=== PATIENT | male | born 1980 | race Caucasian/White ===

== ENCOUNTER 2016-09-13 09:11 | Inpatient (IN) | payer OTHER ==
[~2016-09-13] VITALS: Ht 187.9 cm; Wt 125.6 kg
[2016-09-13] VITALS (8 sets, daily range): BP systolic 129–171; BP diastolic 66–100
--- NOTE | ~2016-09-13 | CON ---
[place], [place] REPORT OF CONSULTATION NAME: YUN VANN UNIT #: [id number] ROOM: [place] [address] DOCTOR: DEMAR ARAGON ED.D (WES) BIRTHDATE: [birth year] DOS: HISTORY OF PRESENT ILLNESS: The patient is a 35-year-old male referred by Dr. Goodman for evaluation following a suicide attempt. At the present time, this patient is in the Intensive Care Unit at [facility]. The patient is single and presently resides with his mother in [place], [place]. He does have 1 sister. He has a bachelor's degree in business administration from [employer] and last worked at an [employer] service. He is presently on [employer] This patient's family physician is Dr. Davis. PAST MEDICAL HISTORY: His medical history is pertinent for bipolar disorder and borderline personality disorder. MEDICATIONS: Include Abilify, Wellbutrin, Pristiq, Neurontin, Rexulti, Carafate and Vyvanse. SOCIAL HISTORY: The patient denies any substance abuse issues, although he has a history of drinking significant amounts of caffeine. MENTAL STATUS: This patient was awake, alert and oriented in all three spheres. He denies any auditory or visual hallucinations or delusions. He has attempted suicide on several different occasions including in 2012 when he also overdosed on his Wellbutrin. In the past, he is followed with Dr. Hamilton in [facility] and also with Dr. Elizabeth in [place]. He does see Ellen Alvarado for counseling and also sees Dr. Renee for his medication management. He has been hospitalized 3 times for psychiatric care including being admitted in [facility], [facility] and [facility] in [place]. His father suffered from depression and committed suicide. This patient's short and long-term memory are intact. His speech was coherent. His insight, judgment and concentration are fair. ASSESSMENT: At the present time, this patient adamantly denies any suicidal ideation or plan. He states he got angry at his sister and decided to kill himself. He now states he does not want to do anything to harm himself and wants to go follow up with Ellen Alvarado for outpatient counseling and also Dr. Renee for medication management. In my opinion, he may be discharged once he is medically stable and apparently he needs to be here for at least 24 hours following an overdose of Wellbutrin. He states he is going to have his mother control his psychotropic medications. DIAGNOSES: 1. Bipolar 2. 2. Borderline personality disorder. Thank you very much for this consult. [place], [place] REPORT OF CONSULTATION NAME: YUN VANN UNIT #: [id number] ROOM: [place] [address] DOCTOR: DEMAR ARAGON ED.D (WES) BIRTHDATE: [birth year] DEMAR ARGAON ED.D CM:CONSTR:REPORT OF CONSULTATION 1341 09/14/16 0127 iron GOODMAN DO
--- NOTE | ~2016-09-13 | CON ---
[place], [place] REPORT OF CONSULTATION NAME: YUN VANN UNIT #: [id number] ROOM: [place] [address] DOCTOR: JASON CARBALLO MD BIRTHDATE: [birth year] DOS: 09/14/2016 CHIEF COMPLAINT: "I just let my father get under my skin and I did something stupid." HISTORY OF PRESENT ILLNESS: This is a 35-year-old white male known to me from my private practice in [facility]. The patient reports that he found out that his father was prior to marrying his mother. This began to work on him negatively and he ruminated over this for days and finally felt so depressed and worked up that he began taking excessive amounts of Wellbutrin in an effort to end his life. Once he realized what he had done, he had presented to the Emergency Room where he was admitted to ICU for further evaluation. Now, he has expressed remorse for his action and feels that he needs to get better. He did report that his current medication regimen, which was very effective, seems to have lost efficacy overtime. He feels that the Pristiq is still working, but the Abilify that was added in summer of last year, may have lost its efficacy and requested something else to be done. The patient has a lengthy history of bipolar disorder, borderline personality disorder, and attention deficit disorder. He follows also with Ellen Alvarado for counseling. MENTAL STATUS: He is alert and oriented. Mood does seem to be trending towards euthymia and affect is more appropriate. He expresses appropriate guilt for his actions and voices positive plans for the future. He did report seeing Ellen Alvarado in the hospital and wants to follow closely with her post-discharge. There is no maddy or hypomania. There are no auditory or visual hallucinations. Memory is intact. DIAGNOSIS: Bipolar type 1, mixed, severe. PLAN: I will go ahead and start him back on the Pristiq. Discontinue the Abilify. Start him on Vraylar 1.5 mg at bedtime. Do this for only a day and then increase to 3 mg a day. I did tell him that if he was discharged before the weekend, to come by the office for samples. JASON CARBALLO MD CM:CONSTR:REPORT OF CONSULTATION 0911 09/14/16 1534 interface
[~2016-09-13 09:11] MED LIST: ABILIFY30 MG PO; ABILIFY5 MG PO; AMBIEN10 MG PO; BACTRIM DS 8001 TAB PO; BENADRYL25 M2 PO; BENZTROPINE1 MG PO; BRIN10TA PO; BRIN20TA PO; CARAFATE1 G1 PO; CEFADROXIL500 M1 PO; CELEXA40 MG PO; CEPHALEXIN500 M1 PO; CIPRO500 MG PO; COUMADIN4 MG PO; COUMADIN5 M2 PO; COUMADIN7.5 M1 PO; Carafate1 GM/10 ML PO; DEPAKOTE ER500 MG PO; EFFEXOR XR150 MG PO; FLAGYL500 MG PO; FLOMAX0.4 MG PO; FOCALIN XR20 MG PO; FOCALIN10 MG PO; GABAPENTIN800 MG PO; HYDROCODONE BIT1 T11 PO; LAMICTAL25 MG PO; LOVENOX100 MG/1 M SC; MACROBID100 M1 PO; MEDROL DOSEPAK4 MG PO; NAPROSYN500 MG PO; NEURONTIN100 MG PO; NEURONTIN400 MG PO; NEURONTIN600 MG PO; PANTOPRAZOLE SO40 MG PO; PREDNISONE10 MG PO; PREDNISONE20 M1 PO; PRISTIQ100 MG PO; PRISTIQ50 MG PO; REXULTI1 MG PO; REXULTI2 MG PO; REXULTI3 MG PO; RISPERDAL1 MG PO; TRAZODONE HCL50 MG PO; TRAZODONE150 MG PO; VIBRAMYCIN100 MG PO; VITAMIN D50000 I3 PO; VYVANSE40 MG PO; VYVANSE70 MG PO; WELLBUTRIN100 MG PO; Wellbutrin Sr100 MG PO; XARE20MG PO
[2016-09-13] MEDS ORDERED: WELLBUTRIN SR200 MG PO (09:24)
[2016-09-13] MEDS ORDERED: ABILIFY30 MG PO (09:24)
[2016-09-13 09:48] LABS: BASO # 0.1 10*3/uL (0.0-0.1); BASO % 0.8 % (0.0-1.0); EOS # 0.1 10*3/uL (0.0-0.4); EOS % 1.4 % (1.0-4.0); HEMATOCRIT 44.4 % (42.0-52.0); HEMOGLOBIN 15.4 g/dl (14.0-18.0); IG # 0.1 10*3/uL (0.0-0.1); LYMPH # 1.8 10*3/uL (1.3-4.4); LYMPH % 21.4 % (27.0-41.0); MEAN CELL VOLUME 91.2 fl (80.0-94.0); MEAN CORPUSCULAR HGB 31.6 pg (27.0-31.0); MEAN CORPUSCULAR HGB CONC 34.7 g/dl (33.0-37.0); MONO # 0.9 10*3/uL (0.1-1.0); MONO % 10.9 % (3.0-9.0); NEUT # 5.5 10*3/uL (2.3-7.9); NEUT % 64.8 % (47.0-73.0); PLATELET COUNT AUTOMATED 313 10*3/uL (130-400); RED BLOOD COUNT 4.87 10*6/uL (4.50-5.90); RED CELL DISTRI WIDTH 13.2 % (0-14.5); WHITE BLOOD COUNT 8.5 10*3/uL (4.8-10.8)
[2016-09-13 10:05] LABS: ALBUMIN 4.5 gm/dl (3.1-4.5); ALKALINE PHOSPHATASE 77 U/L (45-117); BILIRUBIN, TOTAL 0.3 mg/dl (0.2-1.0); BUN 15 mg/dl (7-24); CARBON DIOXIDE 25 mmol/L (21-32); CHLORIDE 104 mmol/L (98-107); EST GLOM FILT AFRICAN AMERICAN > 60 ml/min; GLUCOSE 85 mg/dL (65-99); MAGNESIUM 2.3 mg/dL (1.5-2.1); POTASSIUM 4.3 mmol/L (3.5-5.1); SGOT/AST 36 IU/L (3-35); SGPT/ALT 78 U/L (12-78); SODIUM 141 mmol/L (136-145); TOTAL PROTEIN 8.2 gm/dL (6.4-8.2)
[2016-09-13 10:13] LABS: TROPONIN I < 0.015 ng/ml (<0.045)
[2016-09-13 10:32] LABS: BILIRUBIN NEGATIVE (NEGATIVE); BLOOD NEGATIVE (NEGATIVE); CLARITY CLEAR (CLEAR); COLOR YELLOW (YELLOW); GLUCOSE NEGATIVE (NEGATIVE); KETONE NEGATIVE (NEGATIVE); LEUKO ESTERASE NEGATIVE (NEGATIVE); NITRITE NEGATIVE (NEGATIVE); PH 6.5 (5.0-9.0); PROTEIN NEGATIVE (NEGATIVE); SPECIFIC GRAVITY <= 1.005 (1.005-1.030); UROBILINOGEN 0.2 E.U./dl (0.2-1.0)
[2016-09-13 10:42] LABS: URINE AMPHETAMINES < 1000 (1000ng/ml); URINE BARBITURATES < 200 (200ng/ml); URINE COCAINE < 300 (300ng/ml)
[2016-09-13 10:46] LABS: URINE REFLEX COMMENT NO (NO); WBC 0-2 wbc/hpf (0-5)
[2016-09-13 12:47] LABS: TROPONIN I < 0.015 ng/ml (<0.045)
[2016-09-13 12:48] LABS: CKMB 5.6 ng/ml (0.5-3.6)
[2016-09-13 12:53] LABS: CPK 1121 U/L (39-308)
[2016-09-13 18:00] LABS: CKMB 3.9 ng/ml (0.5-3.6); CPK 807 U/L (39-308); TROPONIN I < 0.015 ng/ml (<0.045)
[2016-09-14] VITALS: BP 128/73
[2016-09-14 00:52] LABS: CKMB 3.2 ng/ml (0.5-3.6); CPK 692 U/L (39-308); TROPONIN I < 0.015 ng/ml (<0.045)
[2016-09-14 03:09] VITALS: BP 163/86
[2016-09-14 04:00] VITALS: BP 126/67
[2016-09-14 06:31] LABS: BASO % 0.4 % (0.0-1.0); EOS # 0.1 10*3/uL (0.0-0.4); EOS % 1.5 % (1.0-4.0); HEMATOCRIT 40.3 % (42.0-52.0); IG # 0.1 10*3/uL (0.0-0.1); LYMPH # 1.6 10*3/uL (1.3-4.4); LYMPH % 22.6 % (27.0-41.0); MEAN CORPUSCULAR HGB 32.1 pg (27.0-31.0); MEAN CORPUSCULAR HGB CONC 33.3 g/dl (33.0-37.0); MEAN PLATELET VOLUME 9.2 fl (9.6-12.3); MONO # 0.8 10*3/uL (0.1-1.0); MONO % 10.8 % (3.0-9.0); NEUT # 4.6 10*3/uL (2.3-7.9); PLATELET COUNT AUTOMATED 232 10*3/uL (130-400); RED BLOOD COUNT 4.18 10*6/uL (4.50-5.90); RED CELL DISTRI WIDTH 13.8 % (0-14.5); WHITE BLOOD COUNT 7.3 10*3/uL (4.8-10.8)
[2016-09-14 06:34] LABS: HEMOGLOBIN 13.4 g/dl (14.0-18.0); MEAN CELL VOLUME 96.4 fl (80.0-94.0)
[2016-09-14 06:49] LABS: CHLORIDE 114 mmol/L (98-107); POTASSIUM 4.1 mmol/L (3.5-5.1); SODIUM 146 mmol/L (136-145)
[2016-09-14 07:01] LABS: ALBUMIN 3.3 gm/dl (3.1-4.5); ALKALINE PHOSPHATASE 62 U/L (45-117); BILIRUBIN, TOTAL 0.3 mg/dl (0.2-1.0); BUN 15 mg/dl (7-24); CARBON DIOXIDE 22 mmol/L (21-32); CHOLESTEROL 142 mg/dL (<200); EST GLOM FILT AFRICAN AMERICAN > 60 ml/min; GLUCOSE 88 mg/dL (65-99); HDL CHOLESTEROL 46 mg/dl (40-60); LDL CHOLESTEROL 80 mg/dL (9-159); MAGNESIUM 2.4 mg/dL (1.5-2.1); PHOSPHOROUS 3.1 mg/dL (2.5-4.9); SGOT/AST 28 IU/L (3-35); SGPT/ALT 53 U/L (12-78); TOTAL PROTEIN 6.3 gm/dL (6.4-8.2); TRIGLYCERIDES 79 mg/dl (<150); VLDL CHOLESTEROL 16 mg/dL (6-40)
[2016-09-14 07:05] LABS: FOLIC ACID 20.49 ng/mL (>5.38); VITAMIN D, 25-HYDROXY 24.6 ng/mL (30-100)
[2016-09-14 08:00] VITALS: BP 118/60
[2016-09-14] MEDS ORDERED: D-1000 185 MG-11 TAB PO (11:32)
== END 2016-09-14 12:00 | disposition home or self-care (01) | DRG 917 ==
LOC: ED 09:11 → ICCU 10:29 → EDHOLD 10:29 → ICCU 10:50
PROVIDERS: Family Medicine Adult Medicine; Hospitalist
DX: T43.292A Poisoning by other antidepressants, intentional self-harm, initial encounter (principal); N17.0 Acute kidney failure with tubular necrosis; F31.63 Bipolar disorder, current episode mixed, severe, without psychotic features; F90.9 Attention-deficit hyperactivity disorder, unspecified type; F25.9 Schizoaffective disorder, unspecified; E05.90 Thyrotoxicosis, unspecified without thyrotoxic crisis or storm; R56.9 Unspecified convulsions; K21.9 Gastro-esophageal reflux disease without esophagitis; F17.210 Nicotine dependence, cigarettes, uncomplicated; D64.9 Anemia, unspecified; E66.9 Obesity, unspecified; R00.0 Tachycardia, unspecified; F60.3 Borderline personality disorder; Z80.3 Family history of malignant neoplasm of breast; Z79.899 Other long term (current) drug therapy; Y92.89 Other specified places as the place of occurrence of the external cause; Z68.33 Body mass index [BMI] 33.0-33.9, adult

== ENCOUNTER → 2016-10-04 | Outpatient (CLI) | payer OTHER ==
[~2016-10-04] MED LIST changes: +D-1000 185 MG-11 TAB PO; +WELLBUTRIN SR200 MG PO
[2016-10-04 11:25] LABS: BASO % 0.4 % (0.0-1.0); EOS # 0.1 10*3/uL (0.0-0.4); EOS % 1.1 % (1.0-4.0); HEMATOCRIT 41.5 % (42.0-52.0); HEMOGLOBIN 14.1 g/dl (14.0-18.0); LYMPH # 1.5 10*3/uL (1.3-4.4); LYMPH % 13.7 % (27.0-41.0); MEAN CELL VOLUME 94.7 fl (80.0-94.0); MEAN CORPUSCULAR HGB 32.2 pg (27.0-31.0); MEAN PLATELET VOLUME 8.8 fl (9.6-12.3); MONO # 0.6 10*3/uL (0.1-1.0); MONO % 5.3 % (3.0-9.0); NEUT # 8.6 10*3/uL (2.3-7.9); NEUT % 79.1 % (47.0-73.0); PLATELET COUNT AUTOMATED 258 10*3/uL (130-400); RED BLOOD COUNT 4.38 10*6/uL (4.50-5.90); RED CELL DISTRI WIDTH 13.9 % (0-14.5); WHITE BLOOD COUNT 10.9 10*3/uL (4.8-10.8)
[2016-10-04 11:48] LABS: ALBUMIN 3.9 gm/dl (3.1-4.5); ALKALINE PHOSPHATASE 73 U/L (45-117); BILIRUBIN, TOTAL 0.3 mg/dl (0.2-1.0); BUN 9 mg/dl (7-24); CARBON DIOXIDE 29 mmol/L (21-32); CHLORIDE 107 mmol/L (98-107); EST GLOM FILT AFRICAN AMERICAN > 60 ml/min; GLUCOSE 99 mg/dL (65-99); POTASSIUM 4.4 mmol/L (3.5-5.1); SGOT/AST 33 IU/L (3-35); SGPT/ALT 71 U/L (12-78); SODIUM 142 mmol/L (136-145); TOTAL PROTEIN 7.3 gm/dL (6.4-8.2)
[2016-10-06 10:06] LABS: NEURONTIN (GABAPENTIN) 1.3 ug/mL (4.0-16.0)
== END | disposition home or self-care (01) ==
LOC: LAB 11:03
PROVIDERS: Nurse Practitioner Family
DX: F31.0 Bipolar disorder, current episode hypomanic (principal)

== ENCOUNTER 2016-11-22 20:59 | Emergency (ER) | payer OTHER ==
[~2016-11-22] VITALS: Ht 187.9 cm; Wt 121.6 kg
[2016-11-22] MEDS ORDERED: VRAYLAR3 MG PO (21:02)
[2016-11-22] MEDS ORDERED: BUSPAR15 MG PO (21:02)
[2016-11-22] MEDS ORDERED: STRATTERA100 MG PO (21:02)
[2016-11-22] MEDS ORDERED: ZANAFLEX CAPSULE4 MG PO (21:03)
[2016-11-22] MEDS ORDERED: CYCLOBENZAPRINE5 M3 PO (23:32)
[2016-11-22] MEDS ORDERED: MEDROL DOSEPAK4 MG PO (23:32)
[2016-11-22] MEDS ORDERED: HYDROCODONE BIT1 T11 PO (23:32)
== END 2016-11-23 | disposition home or self-care (01) ==
LOC: ED 20:59
DX: M54.5 Low back pain (principal); F17.200 Nicotine dependence, unspecified, uncomplicated; Z98.84 Bariatric surgery status; Z98.890 Other specified postprocedural states; Z79.899 Other long term (current) drug therapy; X58.XXXA Exposure to other specified factors, initial encounter; Y93.89 Activity, other specified; Y92.89 Other specified places as the place of occurrence of the external cause; Y99.9 Unspecified external cause status

== ENCOUNTER → 2017-01-18 | Outpatient (CLI) | payer OTHER ==
[~2017-01-18] MED LIST changes: +BUSPAR15 MG PO; +CYCLOBENZAPRINE5 M3 PO; +STRATTERA100 MG PO; +VRAYLAR3 MG PO; +ZANAFLEX CAPSULE4 MG PO
[2017-01-18 10:03] LABS: BASO # 0.1 10*3/uL (0.0-0.1); BASO % 0.5 % (0.0-1.0); EOS # 0.1 10*3/uL (0.0-0.4); EOS % 0.9 % (1.0-4.0); HEMATOCRIT 41.7 % (42.0-52.0); HEMOGLOBIN 14.2 g/dl (14.0-18.0); LYMPH # 1.4 10*3/uL (1.3-4.4); LYMPH % 15.5 % (27.0-41.0); MEAN CELL VOLUME 94.8 fl (80.0-94.0); MEAN CORPUSCULAR HGB 32.3 pg (27.0-31.0); MEAN CORPUSCULAR HGB CONC 34.1 g/dl (33.0-37.0); MEAN PLATELET VOLUME 9.2 fl (9.6-12.3); MONO # 0.6 10*3/uL (0.1-1.0); NEUT % 76.7 % (47.0-73.0); PLATELET COUNT AUTOMATED 251 10*3/uL (130-400); RED CELL DISTRI WIDTH 12.2 % (0-14.5); WHITE BLOOD COUNT 9.2 10*3/uL (4.8-10.8)
[2017-01-18 10:29] LABS: ALBUMIN 3.8 gm/dl (3.1-4.5); BUN 9 mg/dl (7-24); CARBON DIOXIDE 29 mmol/L (21-32); CHLORIDE 108 mmol/L (98-107); GLUCOSE 88 mg/dL (65-99); POTASSIUM 4.4 mmol/L (3.5-5.1); SODIUM 139 mmol/L (136-145)
[2017-01-18 10:40] LABS: ALKALINE PHOSPHATASE 71 U/L (45-117); BILIRUBIN, TOTAL 0.2 mg/dl (0.2-1.0); EST GLOM FILT AFRICAN AMERICAN > 60 ml/min; SGOT/AST 25 IU/L (3-35); SGPT/ALT 63 U/L (12-78); TOTAL PROTEIN 7.1 gm/dL (6.4-8.2)
[2017-01-18 10:56] LABS: VITAMIN D, 25-HYDROXY 25.9 ng/mL (30-100)
[2017-01-18 10:57] LABS: FOLIC ACID 22.66 ng/mL (>5.38)
== END | disposition home or self-care (01) ==
LOC: LAB 09:36
PROVIDERS: Physician Assistant
DX: Z51.81 Encounter for therapeutic drug level monitoring (principal); E55.9 Vitamin D deficiency, unspecified; Z79.899 Other long term (current) drug therapy; F15.90 Other stimulant use, unspecified, uncomplicated

== ENCOUNTER 2017-02-06 05:03 | Emergency (ER) | payer OTHER ==
[~2017-02-06] VITALS: Ht 187.9 cm; Wt 122.5 kg
[2017-02-06 05:41] LABS: BASO % 0.5 % (0.0-1.0); EOS # 0.2 10*3/uL (0.0-0.4); EOS % 1.9 % (1.0-4.0); HEMATOCRIT 38.9 % (42.0-52.0); HEMOGLOBIN 13.6 g/dl (14.0-18.0); LYMPH # 2.6 10*3/uL (1.3-4.4); LYMPH % 32.1 % (27.0-41.0); MEAN CELL VOLUME 93.3 fl (80.0-94.0); MEAN CORPUSCULAR HGB 32.6 pg (27.0-31.0); MEAN PLATELET VOLUME 9.2 fl (9.6-12.3); MONO # 0.6 10*3/uL (0.1-1.0); MONO % 7.7 % (3.0-9.0); NEUT # 4.6 10*3/uL (2.3-7.9); NEUT % 57.2 % (47.0-73.0); PLATELET COUNT AUTOMATED 226 10*3/uL (130-400); RED BLOOD COUNT 4.17 10*6/uL (4.50-5.90); RED CELL DISTRI WIDTH 12.3 % (0-14.5)
[2017-02-06 05:58] LABS: ALKALINE PHOSPHATASE 78 U/L (45-117); BUN 9 mg/dl (7-24); CHLORIDE 99 mmol/L (98-107); POTASSIUM 3.6 mmol/L (3.5-5.1); SGOT/AST 53 IU/L (3-35); SGPT/ALT 60 U/L (12-78); SODIUM 136 mmol/L (136-145); TOTAL PROTEIN 7.3 gm/dL (6.4-8.2)
[2017-02-06 05:59] LABS: BILIRUBIN NEGATIVE (NEGATIVE); BLOOD NEGATIVE (NEGATIVE); CLARITY CLEAR (CLEAR); COLOR YELLOW (YELLOW); GLUCOSE NEGATIVE (NEGATIVE); KETONE NEGATIVE (NEGATIVE); LEUKO ESTERASE NEGATIVE (NEGATIVE); NITRITE NEGATIVE (NEGATIVE); PH 6.5 (5.0-9.0); SPECIFIC GRAVITY <= 1.005 (1.005-1.030); UROBILINOGEN 0.2 E.U./dl (0.2-1.0)
[2017-02-06 05:59] LABS: ACETAMINOPHEN (TYLENOL) < 2.0 ug/ml (10-30); TROPONIN I < 0.015 ng/ml (<0.045)
[2017-02-06 06:04] LABS: THYROID STIM HORMONE (HS) 0.752 uIU/ml (0.358-4.75)
[2017-02-06 06:09] LABS: URINE AMPHETAMINES < 1000 (1000ng/ml); URINE BARBITURATES < 200 (200ng/ml); URINE BENZODIAZEPINES < 200 (200ng/ml); URINE CANNABINOIDS (THC) < 50 (50ng/ml); URINE COCAINE < 300 (300ng/ml); URINE METHADONE < 300 (300ng/ml); URINE OPIATES < 300 (300ng/ml)
[2017-02-06 06:16] LABS: ETHYL ALCOHOL < 3.0 mg/dl (<3)
[2017-02-06 06:17] LABS: URINE PHENCYCLIDINE < 25 (25ng/ml)
[2017-02-06 06:26] LABS: RBC 0-2 rbc/hpf (0-2); WBC 0-2 wbc/hpf (0-5)
== END 2017-02-06 07:13 | disposition home or self-care (01) ==
LOC: ED 05:03
PROVIDERS: Emergency Medicine Emergency Medical Services
DX: R94.6 Abnormal results of thyroid function studies (principal); K21.9 Gastro-esophageal reflux disease without esophagitis; Z87.891 Personal history of nicotine dependence; Z79.899 Other long term (current) drug therapy

== ENCOUNTER → 2017-03-28 | Outpatient (CLI) | payer OTHER | END | disposition home or self-care (01) | LOC: US 12:52 | DX: E05.90 Thyrotoxicosis, unspecified without thyrotoxic crisis or storm (principal) ==

== ENCOUNTER → 2017-04-13 | Outpatient (CLI) | payer OTHER ==
[2017-04-13 09:33] LABS: BASO % 0.5 % (0.0-1.0); EOS # 0.1 10*3/uL (0.0-0.4); EOS % 1.2 % (1.0-4.0); HEMATOCRIT 44.3 % (42.0-52.0); HEMOGLOBIN 15.7 g/dl (14.0-18.0); LYMPH # 1.9 10*3/uL (1.3-4.4); LYMPH % 22.8 % (27.0-41.0); MEAN CELL VOLUME 91.9 fl (80.0-94.0); MEAN CORPUSCULAR HGB 32.6 pg (27.0-31.0); MEAN CORPUSCULAR HGB CONC 35.4 g/dl (33.0-37.0); MEAN PLATELET VOLUME 9.3 fl (9.6-12.3); MONO # 0.7 10*3/uL (0.1-1.0); NEUT # 5.7 10*3/uL (2.3-7.9); PLATELET COUNT AUTOMATED 256 10*3/uL (130-400); RED BLOOD COUNT 4.82 10*6/uL (4.50-5.90); RED CELL DISTRI WIDTH 12.4 % (0-14.5); WHITE BLOOD COUNT 8.4 10*3/uL (4.8-10.8)
[2017-04-13 10:35] LABS: CHLORIDE 102 mmol/L (98-107); SODIUM 138 mmol/L (136-145)
[2017-04-13 11:30] LABS: ALBUMIN 4.1 gm/dl (3.1-4.5); ALKALINE PHOSPHATASE 79 U/L (45-117); BUN 12 mg/dl (7-24); CREATININE 0.86 mg/dL (0.70-1.30); FREE T4 0.94 ng/dl (0.76-1.46); SGOT/AST 23 IU/L (3-35); SGPT/ALT 71 U/L (12-78)
[2017-04-14 16:09] LABS: ANTICARDIOLIPIN AB, IGG, QN <9 GPL U/mL (0-14); ANTICARDIOLIPIN AB, IGM, QN 13 MPL U/mL (0-12); CARDIOLIPIN AB IGA 161836 <9 APL U/mL (0-11)
[2017-04-15 11:03] LABS: PTT-LA 40.4 sec (0.0-51.9)
[2017-04-16 08:04] LABS: LUPUS DRVVT 98.2 sec (0.0-47.0)
[2017-04-16 09:06] LABS: LUPUS REFLEX INTERPRETATION Comment: (.)
[2017-04-16 14:05] LABS: BETA-2 GLYCOPROTEIN I AB,IGG <9 (0-20); BETA-2 GLYCOPROTEIN I AB,IGM <9 (0-32)
== END | disposition home or self-care (01) ==
LOC: LAB 09:10
PROVIDERS: Internal Medicine Hematology & Oncology
DX: F32.9 Major depressive disorder, single episode, unspecified (principal); I26.99 Other pulmonary embolism without acute cor pulmonale

== ENCOUNTER 2017-05-28 22:50 | Emergency (ER) | payer OTHER ==
[~2017-05-28] VITALS: Ht 187.9 cm; Wt 122.5 kg
[2017-05-28 23:20] LABS: BASO # 0.1 10*3/uL (0.0-0.1); BASO % 0.8 % (0.0-1.0); EOS # 0.2 10*3/uL (0.0-0.4); EOS % 1.9 % (1.0-4.0); HEMATOCRIT 41.3 % (42.0-52.0); HEMOGLOBIN 14.3 g/dl (14.0-18.0); LYMPH # 2.5 10*3/uL (1.3-4.4); LYMPH % 31.6 % (27.0-41.0); MEAN CORPUSCULAR HGB 32.2 pg (27.0-31.0); MEAN CORPUSCULAR HGB CONC 34.6 g/dl (33.0-37.0); MEAN PLATELET VOLUME 9.1 fl (9.6-12.3); MONO # 0.5 10*3/uL (0.1-1.0); MONO % 6.6 % (3.0-9.0); NEUT # 4.6 10*3/uL (2.3-7.9); NEUT % 58.7 % (47.0-73.0); PLATELET COUNT AUTOMATED 258 10*3/uL (130-400); RED BLOOD COUNT 4.44 10*6/uL (4.50-5.90); RED CELL DISTRI WIDTH 12.4 % (0-14.5); WHITE BLOOD COUNT 7.9 10*3/uL (4.8-10.8)
[2017-05-28 23:29] LABS: BILIRUBIN NEGATIVE (NEGATIVE); BLOOD NEGATIVE (NEGATIVE); CLARITY CLEAR (CLEAR); COLOR YELLOW (YELLOW); GLUCOSE NEGATIVE (NEGATIVE); KETONE NEGATIVE (NEGATIVE); LEUKO ESTERASE NEGATIVE (NEGATIVE); NITRITE NEGATIVE (NEGATIVE); SPECIFIC GRAVITY <= 1.005 (1.005-1.030); UROBILINOGEN 0.2 E.U./dl (0.2-1.0)
[2017-05-28 23:35] LABS: ALBUMIN 4.1 gm/dl (3.1-4.5); ALKALINE PHOSPHATASE 86 U/L (45-117); BUN 10 mg/dl (7-24); CHLORIDE 103 mmol/L (98-107); CREATININE 1.07 mg/dL (0.70-1.30); POTASSIUM 3.9 mmol/L (3.5-5.1); SGOT/AST 50 IU/L (3-35); SGPT/ALT 76 U/L (12-78); SODIUM 141 mmol/L (136-145); TOTAL PROTEIN 7.7 gm/dL (6.4-8.2)
[2017-05-28 23:36] LABS: BACTERIA TRACE; EPITHELIAL CELLS 0-2; RBC 0-2 rbc/hpf (0-2); WBC 0-2 wbc/hpf (0-5)
[2017-05-28 23:37] LABS: ACETAMINOPHEN (TYLENOL) < 2.0 ug/ml (10-30); ETHYL ALCOHOL < 3.0 mg/dl (<3)
[2017-05-28 23:38] LABS: URINE AMPHETAMINES < 1000 (1000ng/ml); URINE BARBITURATES < 200 (200ng/ml); URINE BENZODIAZEPINES < 200 (200ng/ml); URINE CANNABINOIDS (THC) < 50 (50ng/ml); URINE COCAINE < 300 (300ng/ml); URINE METHADONE < 300 (300ng/ml); URINE OPIATES < 300 (300ng/ml); URINE PHENCYCLIDINE < 25 (25ng/ml)
== END 2017-05-30 22:21 | disposition short-term general hospital (02) ==
LOC: ED 22:50
PROVIDERS: Emergency Medicine Emergency Medical Services
DX: F32.9 Major depressive disorder, single episode, unspecified (principal); R45.851 Suicidal ideations; F90.9 Attention-deficit hyperactivity disorder, unspecified type; F41.9 Anxiety disorder, unspecified; K21.9 Gastro-esophageal reflux disease without esophagitis; E05.90 Thyrotoxicosis, unspecified without thyrotoxic crisis or storm; F20.9 Schizophrenia, unspecified; N17.9 Acute kidney failure, unspecified; F17.210 Nicotine dependence, cigarettes, uncomplicated; Z68.39 Body mass index [BMI] 39.0-39.9, adult; Z79.899 Other long term (current) drug therapy

== ENCOUNTER 2017-06-23 07:44 | Emergency (ER) | payer OTHER ==
[~2017-06-23] VITALS: Ht 187.9 cm; Wt 121.6 kg
[2017-06-23 08:15] LABS: BASO # 0.1 10*3/uL (0.0-0.1); BASO % 0.8 % (0.0-1.0); EOS # 0.2 10*3/uL (0.0-0.4); EOS % 2.1 % (1.0-4.0); HEMATOCRIT 40.7 % (42.0-52.0); HEMOGLOBIN 14.1 g/dl (14.0-18.0); LYMPH # 2.1 10*3/uL (1.3-4.4); MEAN CELL VOLUME 94.2 fl (80.0-94.0); MEAN CORPUSCULAR HGB 32.6 pg (27.0-31.0); MEAN CORPUSCULAR HGB CONC 34.6 g/dl (33.0-37.0); MEAN PLATELET VOLUME 9.1 fl (9.6-12.3); MONO # 0.7 10*3/uL (0.1-1.0); MONO % 8.7 % (3.0-9.0); NEUT # 4.8 10*3/uL (2.3-7.9); NEUT % 60.9 % (47.0-73.0); PLATELET COUNT AUTOMATED 262 10*3/uL (130-400); RED BLOOD COUNT 4.32 10*6/uL (4.50-5.90); RED CELL DISTRI WIDTH 12.3 % (0-14.5); WHITE BLOOD COUNT 7.8 10*3/uL (4.8-10.8)
[2017-06-23] MEDS ORDERED: SYNTHROID25 MCG PO (08:20)
[2017-06-23 08:30] LABS: ALBUMIN 3.8 gm/dl (3.1-4.5); ALKALINE PHOSPHATASE 83 U/L (45-117); BUN 8 mg/dl (7-24); CHLORIDE 104 mmol/L (98-107); CREATININE 0.96 mg/dL (0.70-1.30); POTASSIUM 4.1 mmol/L (3.5-5.1); SGOT/AST 32 IU/L (3-35); SGPT/ALT 66 U/L (12-78); SODIUM 139 mmol/L (136-145); TOTAL PROTEIN 7.3 gm/dL (6.4-8.2)
[2017-06-23 08:31] LABS: ETHYL ALCOHOL < 3.0 mg/dl (<3)
[2017-06-23 08:32] LABS: BILIRUBIN NEGATIVE (NEGATIVE); BLOOD NEGATIVE (NEGATIVE); CLARITY CLEAR (CLEAR); COLOR YELLOW (YELLOW); GLUCOSE NEGATIVE (NEGATIVE); KETONE NEGATIVE (NEGATIVE); LEUKO ESTERASE NEGATIVE (NEGATIVE); NITRITE NEGATIVE (NEGATIVE); PH 6.5 (5.0-9.0); SPECIFIC GRAVITY <= 1.005 (1.005-1.030); UROBILINOGEN 0.2 E.U./dl (0.2-1.0)
[2017-06-23 08:38] LABS: THYROID STIM HORMONE (HS) 0.669 uIU/ml (0.358-4.75)
[2017-06-23 08:40] LABS: URINE AMPHETAMINES < 1000 (1000ng/ml); URINE BARBITURATES < 200 (200ng/ml); URINE BENZODIAZEPINES < 200 (200ng/ml); URINE CANNABINOIDS (THC) < 50 (50ng/ml); URINE COCAINE < 300 (300ng/ml); URINE METHADONE < 300 (300ng/ml); URINE OPIATES < 300 (300ng/ml); URINE PHENCYCLIDINE < 25 (25ng/ml)
== END 2017-06-23 08:39 | disposition home or self-care (01) ==
LOC: ED 07:44
PROVIDERS: Emergency Medicine
DX: F25.9 Schizoaffective disorder, unspecified (principal); F17.200 Nicotine dependence, unspecified, uncomplicated; F90.9 Attention-deficit hyperactivity disorder, unspecified type; F32.9 Major depressive disorder, single episode, unspecified; K21.9 Gastro-esophageal reflux disease without esophagitis; E05.90 Thyrotoxicosis, unspecified without thyrotoxic crisis or storm; N17.9 Acute kidney failure, unspecified; Z68.39 Body mass index [BMI] 39.0-39.9, adult

== ENCOUNTER → 2017-09-25 | Outpatient (CLI) | payer OTHER ==
[~2017-09-25] MED LIST changes: +SYNTHROID25 MCG PO
[2017-09-25 13:16] LABS: FREE T4 0.83 ng/dl (0.76-1.46)
[2017-09-25 13:21] LABS: THYROID STIM HORMONE (HS) 0.138 uIU/ml (0.358-4.75)
== END | disposition home or self-care (01) ==
LOC: LAB 12:06
PROVIDERS: Internal Medicine
DX: E03.9 Hypothyroidism, unspecified (principal); E55.9 Vitamin D deficiency, unspecified

== ENCOUNTER 2017-10-20 08:00 | Emergency (ER) | payer OTHER ==
[~2017-10-20] VITALS: Ht 182.8 cm; Wt 123.8 kg
[2017-10-20] MEDS ORDERED: NAPROSYN500 MG PO (09:06)
[2017-10-20] MEDS ORDERED: PREDNISONE50 MG PO (09:06)
== END 2017-10-20 09:35 | disposition left against medical advice (07) ==
LOC: ED 08:00
DX: M25.511 Pain in right shoulder (principal); M54.2 Cervicalgia; K21.9 Gastro-esophageal reflux disease without esophagitis; E66.9 Obesity, unspecified; F17.200 Nicotine dependence, unspecified, uncomplicated; E05.90 Thyrotoxicosis, unspecified without thyrotoxic crisis or storm; Z68.39 Body mass index [BMI] 39.0-39.9, adult; Z98.890 Other specified postprocedural states; Z79.899 Other long term (current) drug therapy; X50.0XXA Overexertion from strenuous movement or load, initial encounter; Y93.89 Activity, other specified; Y92.89 Other specified places as the place of occurrence of the external cause; Y99.9 Unspecified external cause status

== ENCOUNTER 2017-12-30 18:04 | Emergency (ER) | payer OTHER ==
[~2017-12-30] VITALS: Ht 187.9 cm; Wt 123.4 kg
--- NOTE | ~2017-12-30 | EKG ---
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
[~2017-12-30 18:04] MED LIST changes: +PREDNISONE50 MG PO
[2017-12-30] MEDS ORDERED: INVEGA6 MG PO (18:19)
[2017-12-30] MEDS ORDERED: DOXEPIN HCL25 MG PO (18:19)
[2017-12-30] MEDS ORDERED: VYVANSE60 MG PO (18:20)
[2017-12-30] MEDS ORDERED: VITAMIN D5000 UNI1 PO (18:20)
[2017-12-30 18:50] LABS: BASO % 0.4 % (0.0-1.0); EOS # 0.1 10*3/uL (0.0-0.4); EOS % 0.9 % (1.0-4.0); HEMATOCRIT 41.9 % (42.0-52.0); HEMOGLOBIN 14.9 g/dl (14.0-18.0); LYMPH # 1.8 10*3/uL (1.3-4.4); LYMPH % 19.1 % (27.0-41.0); MEAN CELL VOLUME 90.7 fl (80.0-94.0); MEAN CORPUSCULAR HGB 32.3 pg (27.0-31.0); MEAN CORPUSCULAR HGB CONC 35.6 g/dl (33.0-37.0); MONO # 0.7 10*3/uL (0.1-1.0); NEUT # 6.9 10*3/uL (2.3-7.9); NEUT % 72.4 % (47.0-73.0); PLATELET COUNT AUTOMATED 245 10*3/uL (130-400); RED BLOOD COUNT 4.62 10*6/uL (4.50-5.90); RED CELL DISTRI WIDTH 12.4 % (0-14.5); WHITE BLOOD COUNT 9.5 10*3/uL (4.8-10.8)
[2017-12-30 19:19] LABS: ALBUMIN 4.6 gm/dl (3.1-4.5); ALKALINE PHOSPHATASE 66 U/L (45-117); BUN 12 mg/dl (7-24); CHLORIDE 102 mmol/L (98-107); CREATININE 1.12 mg/dL (0.70-1.30); POTASSIUM 2.9 mmol/L (3.5-5.1); SGOT/AST 62 IU/L (3-35); SGPT/ALT 81 U/L (12-78); SODIUM 140 mmol/L (136-145); TOTAL PROTEIN 7.6 gm/dL (6.4-8.2)
[2017-12-30 19:20] LABS: TROPONIN I < 0.015 ng/ml (<0.045)
[2017-12-30] MEDS ORDERED: POTASSIUM CHLO20 ME3 PO (19:47)
[2017-12-30 19:49] LABS: BILIRUBIN NEGATIVE (NEGATIVE); BLOOD NEGATIVE (NEGATIVE); CLARITY CLEAR (CLEAR); COLOR YELLOW (YELLOW); GLUCOSE NEGATIVE (NEGATIVE); KETONE TRACE (NEGATIVE); LEUKO ESTERASE NEGATIVE (NEGATIVE); NITRITE NEGATIVE (NEGATIVE); PH 8.5 (5.0-9.0); SPECIFIC GRAVITY <= 1.005 (1.005-1.030); UROBILINOGEN 0.2 E.U./dl (0.2-1.0)
[2017-12-30 19:57] LABS: URINE AMPHETAMINES < 1000 (1000ng/ml); URINE BARBITURATES < 200 (200ng/ml); URINE BENZODIAZEPINES < 200 (200ng/ml); URINE CANNABINOIDS (THC) < 50 (50ng/ml); URINE COCAINE < 300 (300ng/ml); URINE METHADONE < 300 (300ng/ml); URINE OPIATES < 300 (300ng/ml)
[2017-12-30 20:11] LABS: URINE PHENCYCLIDINE < 25 (25ng/ml)
[2017-12-30 20:25] LABS: BACTERIA TRACE; WBC 0-2 wbc/hpf (0-5)
== END 2017-12-30 21:59 | disposition home or self-care (01) ==
LOC: ED 18:04
PROVIDERS: Nurse Practitioner
DX: R00.2 Palpitations (principal); T43.615A Adverse effect of caffeine, initial encounter; E87.6 Hypokalemia; L21.0 Seborrhea capitis; R94.5 Abnormal results of liver function studies; F17.200 Nicotine dependence, unspecified, uncomplicated; Z79.899 Other long term (current) drug therapy; Y92.89 Other specified places as the place of occurrence of the external cause

== ENCOUNTER → 2018-01-09 | Outpatient (CLI) | payer OTHER ==
[~2018-01-09] MED LIST changes: +DOXEPIN HCL25 MG PO; +INVEGA6 MG PO; +POTASSIUM CHLO20 ME3 PO; +VITAMIN D5000 UNI1 PO; +VYVANSE60 MG PO
[2018-01-09 10:58] LABS: HEMATOCRIT 38.6 % (42.0-52.0); MEAN CELL VOLUME 95.3 fl (80.0-94.0); MEAN CORPUSCULAR HGB 32.1 pg (27.0-31.0); MEAN CORPUSCULAR HGB CONC 33.7 g/dl (33.0-37.0); MEAN PLATELET VOLUME 9.4 fl (9.6-12.3); RED BLOOD COUNT 4.05 10*6/uL (4.50-5.90); RED CELL DISTRI WIDTH 12.6 % (0-14.5)
[2018-01-09 11:09] LABS: ALBUMIN 3.7 gm/dl (3.1-4.5); ALKALINE PHOSPHATASE 64 U/L (45-117); BUN 6 mg/dl (7-24); CHLORIDE 107 mmol/L (98-107); CHOLESTEROL 135 mg/dL (<200); FREE T4 0.74 ng/dl (0.76-1.46); GAMMA GLUTAMYL TRANSPEPTIDASE 83 U/L (15-85); HDL CHOLESTEROL 46 mg/dl (40-60); LDL CHOLESTEROL 73 mg/dL (9-159); POTASSIUM 3.7 mmol/L (3.5-5.1); SGOT/AST 25 IU/L (3-35); SGPT/ALT 55 U/L (12-78); SODIUM 144 mmol/L (136-145); TOTAL PROTEIN 6.7 gm/dL (6.4-8.2); TRIGLYCERIDES 79 mg/dl (<150); VLDL CHOLESTEROL 16 mg/dL (6-40)
[2018-01-09 11:13] LABS: THYROID STIM HORMONE (HS) 0.173 uIU/ml (0.358-4.75)
== END | disposition home or self-care (01) ==
LOC: LAB 10:19
PROVIDERS: Family Medicine
DX: E03.9 Hypothyroidism, unspecified (principal); E87.6 Hypokalemia; F10.21 Alcohol dependence, in remission

== ENCOUNTER 2018-01-13 15:32 | Emergency (ER) | payer OTHER ==
[~2018-01-13] VITALS: Ht 187.9 cm; Wt 124.7 kg
--- NOTE | ~2018-01-13 | EKG ---
[place], [place] ELECTROCARDIOGRAM REPORT NAME: YUN VANN UNIT #: [id number] ROOM: DOCTOR: ANGELA DRAFT REPORT BIRTHDATE: [birth year] [facility] Test Date: 2018-01-13 Test Time: 16:00:29 Pat Name: YUN VANN Department: Room: Gender: Blog Writer: : 1980 Requested By: ROSA ORTIZ Order Number: [id number] Reading MD: Measurements Intervals [place] Rate: 102 P: 60 W[place]: 139 QRS: -56 QRSD: 113 T: 44 QT: 357 QTc: 466 Interpretive Statements Sinus tachycardia Borderline IVCD with LAD Compared to ECG 12/30/2017 18:22:39 Sinus rhythm no longer present Atrial abnormality no longer present Left anterior fascicular block no longer present Right bundle-branch block no longer present CM:EKGRPT:ELECTROCARDIOGRAM REPORT 1600 1301 ROSA MILLER DRAFT REPORT ROSA ORTIZ MD
[2018-01-13 16:09] LABS: BASO # 0.1 10*3/uL (0.0-0.1); BASO % 0.7 % (0.0-1.0); EOS # 0.2 10*3/uL (0.0-0.4); EOS % 2.1 % (1.0-4.0); HEMOGLOBIN 16.2 g/dl (14.0-18.0); LYMPH % 20.9 % (27.0-41.0); MEAN CELL VOLUME 93.4 fl (80.0-94.0); MEAN CORPUSCULAR HGB 32.2 pg (27.0-31.0); MEAN CORPUSCULAR HGB CONC 34.5 g/dl (33.0-37.0); MEAN PLATELET VOLUME 8.9 fl (9.6-12.3); MONO % 10.7 % (3.0-9.0); NEUT # 6.3 10*3/uL (2.3-7.9); NEUT % 65.2 % (47.0-73.0); PLATELET COUNT AUTOMATED 291 10*3/uL (130-400); RED BLOOD COUNT 5.03 10*6/uL (4.50-5.90); RED CELL DISTRI WIDTH 12.3 % (0-14.5); WHITE BLOOD COUNT 9.7 10*3/uL (4.8-10.8)
[2018-01-13 16:26] LABS: ALBUMIN 4.6 gm/dl (3.1-4.5); ALKALINE PHOSPHATASE 81 U/L (45-117); BUN 17 mg/dl (7-24); CHLORIDE 104 mmol/L (98-107); CREATININE 1.36 mg/dL (0.70-1.30); POTASSIUM 4.5 mmol/L (3.5-5.1); SGOT/AST 43 IU/L (3-35); SGPT/ALT 79 U/L (12-78); SODIUM 141 mmol/L (136-145); TOTAL PROTEIN 8.1 gm/dL (6.4-8.2)
[2018-01-13 16:27] LABS: ETHYL ALCOHOL < 3.0 mg/dl (<3); TROPONIN I < 0.015 ng/ml (<0.045)
[2018-01-13 16:32] LABS: THYROID STIM HORMONE (HS) 0.424 uIU/ml (0.358-4.75)
[2018-01-13 18:09] LABS: BILIRUBIN NEGATIVE (NEGATIVE); BLOOD NEGATIVE (NEGATIVE); CLARITY CLEAR (CLEAR); COLOR YELLOW (YELLOW); GLUCOSE NEGATIVE (NEGATIVE); KETONE NEGATIVE (NEGATIVE); LEUKO ESTERASE NEGATIVE (NEGATIVE); NITRITE NEGATIVE (NEGATIVE); PH 6.5 (5.0-9.0); UROBILINOGEN 0.2 E.U./dl (0.2-1.0)
[2018-01-13 18:15] LABS: BACTERIA 1+; EPITHELIAL CELLS 0-2; MUCOUS TRACE; RBC 0-2 rbc/hpf (0-2); WBC 0-2 wbc/hpf (0-5)
[2018-01-13 18:18] LABS: URINE AMPHETAMINES > 1000 (1000ng/ml); URINE BARBITURATES < 200 (200ng/ml); URINE BENZODIAZEPINES < 200 (200ng/ml); URINE CANNABINOIDS (THC) < 50 (50ng/ml); URINE COCAINE < 300 (300ng/ml); URINE METHADONE < 300 (300ng/ml); URINE OPIATES < 300 (300ng/ml)
[2018-01-13 18:22] LABS: URINE PHENCYCLIDINE < 25 (25ng/ml)
== END 2018-01-13 18:59 | disposition left against medical advice (07) ==
LOC: ED 15:32
PROVIDERS: Emergency Medicine
DX: N17.9 Acute kidney failure, unspecified (principal); F20.9 Schizophrenia, unspecified; R61 Generalized hyperhidrosis; G25.79 Other drug induced movement disorders; F17.200 Nicotine dependence, unspecified, uncomplicated; F90.9 Attention-deficit hyperactivity disorder, unspecified type; F31.9 Bipolar disorder, unspecified; K21.9 Gastro-esophageal reflux disease without esophagitis; E05.90 Thyrotoxicosis, unspecified without thyrotoxic crisis or storm; E66.9 Obesity, unspecified; Z68.39 Body mass index [BMI] 39.0-39.9, adult; Z98.890 Other specified postprocedural states; Z98.84 Bariatric surgery status; Z79.899 Other long term (current) drug therapy

== ENCOUNTER → 2018-01-28 | Outpatient (CLI) | payer OTHER ==
[2018-01-28 15:14] LABS: FREE T4 0.76 ng/dl (0.76-1.46)
[2018-01-28 15:19] LABS: THYROID STIM HORMONE (HS) 0.847 uIU/ml (0.358-4.75)
== END | disposition home or self-care (01) ==
LOC: LAB 14:10
PROVIDERS: Internal Medicine
DX: E55.9 Vitamin D deficiency, unspecified (principal); E03.9 Hypothyroidism, unspecified

== ENCOUNTER 2018-02-16 15:51 | Emergency (ER) | payer OTHER ==
[~2018-02-16] VITALS: Wt 129.3 kg
[~2018-02-16 15:51] MED LIST changes: -INVEGA6 MG PO; +INVEGA9 MG PO
[2018-03-15] MEDS ORDERED: WELLBUTRIN SR200 MG PO (01:25)
[2018-03-15] MEDS ORDERED: ANADROL-5050 MG PO (01:26)
[2018-03-15] MEDS ORDERED: ANAFRANIL50 M1 PO (01:30)
[2018-03-15] MEDS ORDERED: EFFEXOR-XR150 MG PO (15:24)
[2018-06-06] MEDS ORDERED: VOLTAREN100 GM T (13:02)
[2018-06-06] MEDS ORDERED: VOLTAREN50 M1 PO (13:02)
== END 2018-02-16 16:17 | disposition home or self-care (01) ==
LOC: ED 15:51
DX: S61.210D Laceration without foreign body of right index finger without damage to nail, subsequent encounter (principal); R03.0 Elevated blood-pressure reading, without diagnosis of hypertension; F17.200 Nicotine dependence, unspecified, uncomplicated; K21.9 Gastro-esophageal reflux disease without esophagitis; E66.9 Obesity, unspecified; Z68.39 Body mass index [BMI] 39.0-39.9, adult; Z98.890 Other specified postprocedural states; Z79.899 Other long term (current) drug therapy; X58.XXXD Exposure to other specified factors, subsequent encounter

== ENCOUNTER 2018-02-26 04:24 | Emergency (ER) | payer OTHER ==
[~2018-02-26] VITALS: Ht 187.9 cm; Wt 122.0 kg
[2018-03-15] MEDS ORDERED: WELLBUTRIN SR200 MG PO (01:25)
[2018-03-15] MEDS ORDERED: ANADROL-5050 MG PO (01:26)
[2018-03-15] MEDS ORDERED: ANAFRANIL50 M1 PO (01:30)
[2018-03-15] MEDS ORDERED: EFFEXOR-XR150 MG PO (15:24)
== END 2018-02-26 04:51 | disposition home or self-care (01) ==
LOC: ED 04:24
DX: R19.7 Diarrhea, unspecified (principal); K21.9 Gastro-esophageal reflux disease without esophagitis; E05.90 Thyrotoxicosis, unspecified without thyrotoxic crisis or storm; E66.9 Obesity, unspecified; F17.200 Nicotine dependence, unspecified, uncomplicated; Z68.30 Body mass index [BMI] 30.0-30.9, adult

== ENCOUNTER 2018-03-26 22:43 | Emergency (ER) | payer OTHER ==
[~2018-03-26] VITALS: Ht 187.9 cm; Wt 125.6 kg
[~2018-03-26 22:43] MED LIST changes: +ANADROL-5050 MG PO; +ANAFRANIL50 M1 PO; +EFFEXOR-XR150 MG PO
[2018-03-26 23:21] LABS: BASO # 0.1 10*3/uL (0.0-0.1); BASO % 0.7 % (0.0-1.0); EOS # 0.2 10*3/uL (0.0-0.4); EOS % 2.4 % (1.0-4.0); HEMATOCRIT 38.7 % (42.0-52.0); HEMOGLOBIN 13.3 g/dl (14.0-18.0); LYMPH # 3.3 10*3/uL (1.3-4.4); MEAN CELL VOLUME 95.8 fl (80.0-94.0); MEAN CORPUSCULAR HGB 32.9 pg (27.0-31.0); MEAN CORPUSCULAR HGB CONC 34.4 g/dl (33.0-37.0); MEAN PLATELET VOLUME 9.1 fl (9.6-12.3); MONO # 0.8 10*3/uL (0.1-1.0); MONO % 7.9 % (3.0-9.0); NEUT # 5.5 10*3/uL (2.3-7.9); NEUT % 54.9 % (47.0-73.0); PLATELET COUNT AUTOMATED 266 10*3/uL (130-400); RED BLOOD COUNT 4.04 10*6/uL (4.50-5.90); RED CELL DISTRI WIDTH 12.7 % (0-14.5)
[2018-03-26 23:22] LABS: BILIRUBIN NEGATIVE (NEGATIVE); BLOOD NEGATIVE (NEGATIVE); CLARITY CLEAR (CLEAR); COLOR YELLOW (YELLOW); GLUCOSE NEGATIVE (NEGATIVE); KETONE NEGATIVE (NEGATIVE); LEUKO ESTERASE TRACE (NEGATIVE); NITRITE NEGATIVE (NEGATIVE); UROBILINOGEN 0.2 E.U./dl (0.2-1.0)
[2018-03-26 23:29] LABS: ALBUMIN 3.9 gm/dl (3.1-4.5); ALKALINE PHOSPHATASE 73 U/L (45-117); BUN 6 mg/dl (7-24); CHLORIDE 107 mmol/L (98-107); CREATININE 1.36 mg/dL (0.70-1.30); POTASSIUM 3.7 mmol/L (3.5-5.1); SGOT/AST 26 IU/L (3-35); SGPT/ALT 46 U/L (12-78); SODIUM 141 mmol/L (136-145); TOTAL PROTEIN 7.3 gm/dL (6.4-8.2)
[2018-03-26 23:31] LABS: URINE AMPHETAMINES < 1000 (1000ng/ml); URINE BARBITURATES < 200 (200ng/ml); URINE BENZODIAZEPINES < 200 (200ng/ml); URINE CANNABINOIDS (THC) < 50 (50ng/ml); URINE COCAINE < 300 (300ng/ml); URINE METHADONE < 300 (300ng/ml); URINE OPIATES < 300 (300ng/ml)
[2018-03-26 23:32] LABS: URINE PHENCYCLIDINE < 25 (25ng/ml)
[2018-03-26 23:32] LABS: ACETAMINOPHEN (TYLENOL) < 2.0 ug/ml (10-30); ETHYL ALCOHOL < 3.0 mg/dl (<3)
== END 2018-03-27 10:25 | disposition home or self-care (01) ==
LOC: ED 22:43
PROVIDERS: Emergency Medicine
DX: F32.9 Major depressive disorder, single episode, unspecified (principal); F90.9 Attention-deficit hyperactivity disorder, unspecified type; K21.9 Gastro-esophageal reflux disease without esophagitis; E03.9 Hypothyroidism, unspecified; E66.9 Obesity, unspecified; Z68.30 Body mass index [BMI] 30.0-30.9, adult; Z79.899 Other long term (current) drug therapy

== ENCOUNTER 2018-03-30 07:04 | Emergency (ER) | payer OTHER ==
[~2018-03-30] VITALS: Ht 187.9 cm; Wt 113.4 kg
[2018-03-30] MEDS ORDERED: ELIMITE 5%60 GM T ×2 (21:31→21:41)
== END 2018-03-30 08:22 | disposition home or self-care (01) ==
LOC: ED 07:04
DX: F45.8 Other somatoform disorders (principal); F25.9 Schizoaffective disorder, unspecified; F90.9 Attention-deficit hyperactivity disorder, unspecified type; F31.9 Bipolar disorder, unspecified; K21.9 Gastro-esophageal reflux disease without esophagitis; E05.90 Thyrotoxicosis, unspecified without thyrotoxic crisis or storm; E66.9 Obesity, unspecified; F17.200 Nicotine dependence, unspecified, uncomplicated; Z68.30 Body mass index [BMI] 30.0-30.9, adult; Z79.899 Other long term (current) drug therapy

== ENCOUNTER 2018-03-30 21:12 | Emergency (ER) | payer OTHER ==
[~2018-03-30] VITALS: Wt 124.7 kg
[2018-03-30] MEDS ORDERED: ELIMITE 5%60 GM T ×2 (21:31→21:41)
== END 2018-03-30 21:37 | disposition home or self-care (01) ==
LOC: ED 21:12
DX: R21 Rash and other nonspecific skin eruption (principal); F17.200 Nicotine dependence, unspecified, uncomplicated; Z79.899 Other long term (current) drug therapy

== ENCOUNTER 2018-03-31 21:48 | Emergency (ER) | payer OTHER ==
[~2018-03-31] VITALS: Ht 187.9 cm; Wt 124.7 kg
[~2018-03-31 21:48] MED LIST changes: +ELIMITE 5%60 GM T
== END 2018-03-31 23:36 | disposition home or self-care (01) ==
LOC: ED 21:48
DX: S00.86XA Insect bite (nonvenomous) of other part of head, initial encounter (principal); K21.9 Gastro-esophageal reflux disease without esophagitis; E66.9 Obesity, unspecified; E05.90 Thyrotoxicosis, unspecified without thyrotoxic crisis or storm; Z79.899 Other long term (current) drug therapy; Z68.39 Body mass index [BMI] 39.0-39.9, adult; Z87.891 Personal history of nicotine dependence; W57.XXXA Bitten or stung by nonvenomous insect and other nonvenomous arthropods, initial encounter; Y93.89 Activity, other specified; Y92.89 Other specified places as the place of occurrence of the external cause; Y99.8 Other external cause status

== ENCOUNTER 2018-04-02 13:39 | Inpatient (IN) | payer OTHER ==
[~2018-04-02] VITALS: Ht 187.9 cm; Wt 122.6 kg
--- NOTE | ~2018-04-02 | EKG ---
[place], [place] ELECTROCARDIOGRAM REPORT NAME: YUN VANN UNIT #: [id number] ROOM: [facility] DOCTOR: ANGELA DRAFT REPORT BIRTHDATE: [birth year] [facility] Test Date: 2018-04-02 Test Time: 16:01:46 Pat Name: YUN VANN Department: Room: [facility] Gender: M Photoresist Contact Printer: Shirley Aguero : 1980 Requested By: ROSA ORTIZ Order Number: [id number] Reading MD: Wei Fischer MD Measurements Intervals [place] Rate: 111 P: 63 NC: 170 QRS: 206 QRSD: 128 T: 28 QT: 358 QTc: 487 Interpretive Statements Sinus tachycardia Consider right atrial enlargement Nonspecific intraventricular conduction delay Inferior infarct, acute (LCx) Lateral leads are also involved Compared to ECG 03/15/2018 10:31:59 Intraventricular conduction delay now present Myocardial infarct finding now present Electronically Signed On 04-08-2018 13:42:33 PDT by Wei Fischer MD CM:EKGRPT:ELECTROCARDIOGRAM REPORT 1601 1342 ROSA MILLER DRAFT REPORT ROSA ORTIZ MD
--- NOTE | ~2018-04-02 | WRIGHTHP ---
[place], [place] PATIENT HISTORY AND PHYSICAL EXAM NAME: YUN VANN [facility] #: [id number] UNIT #: [id number] ROOM: [facility] DOCTOR: BALDEV SHI MD BIRTHDATE: [birth year] DOS: 04/02/2018 HISTORY OF PRESENT ILLNESS: The patient is 37 years old, not known to me. The patient has had many admissions in the hospital, last one being February with a possible intentional overdose of Wellbutrin. He comes back again this time with a similar problem. He states that he was upset at his family members since he took 6 tablets of Wellbutrin. Denies having any and after that he decided to come into the Emergency Room. In the ER, he was evaluated and the Poison Control initially asked that he be monitored for 8 hours and then be switched to 24 hours of monitoring, so therefore the patient had to be admitted to the hospital. This morning, the patient is doing well. He is worried about some bugs flying around, he also thinks his scabies is not better. He took a permethrin cream a few days ago. He denies having any chest pains, palpitations, does not have any fever or chills, does not have any abdominal pain, nausea, any emesis. PAST MEDICAL HISTORY: Significant for: 1. Schizophrenia. 2. ADHD. 3. Bipolar disorder. 4. Major depression with suicidal ideations in the past. 5. History of serotonin syndrome. 6. Recent treatment for scabies. 7. History of a CVA. MEDICATIONS: Medications that he is on are Wellbutrin 200 mg twice a day, Anafranil 50 b.i.d., doxepin 25 at bedtime, gabapentin 400 t.i.d., levothyroxine 25 mcg daily, Vyvanse 70 mg daily, Invega 9 mg daily, Xarelto 20 daily, Carafate 1 g b.i.d., and Effexor 150 daily. SOCIAL HISTORY: Smoker, smokes about a pack of cigarettes a day. Also drinks multiple beers daily. PHYSICAL EXAMINATION: VITAL SIGNS: Graphic trend shows a pressure of 128/70, pulse of 90, respirations 16, and temperature 97.6. LUNGS: Clear. HEART: Regular. ABDOMEN: Obese, soft. EXTREMITIES: Without any edema. Multiple scratch warren all over his body, small red areas in the upper limbs as well as in between his fingers in the hand. ASSESSMENT AND PLAN: 1. Intentional drug overdose of 6 tablets of Wellbutrin. He has been monitored for 24 hours and has not had any QT prolongation. The patient is stable, therefore and can be discharged. 2. Schizophrenia with multiple other psych issues, we will ask ____ to see him before he leaves. 3. Recent scabies, ivermectin tablet was given today. He has already been [place], [place] PATIENT HISTORY AND PHYSICAL EXAM NAME: YUN VANN UNIT #: [id number] ROOM: [facility] DOCTOR: BALDEV SHI MD BIRTHDATE: [birth year] treated with local skin preparation. Recently, he is advised to repeat in after a week. BALDEV SHI MD CM:HISPHYS:PATIENT HISTORY AND PHYSICAL EXAMINATION 4 BALDEV SHI MD 04/03/18925 interface
[2018-04-02 13:40] VITALS: BP 156/96
[2018-04-02 14:07] LABS: BASO % 0.4 % (0.0-1.0); EOS # 0.1 10*3/uL (0.0-0.4); EOS % 1.1 % (1.0-4.0); HEMATOCRIT 40.2 % (42.0-52.0); HEMOGLOBIN 13.7 g/dl (14.0-18.0); LYMPH # 1.4 10*3/uL (1.3-4.4); LYMPH % 18.9 % (27.0-41.0); MEAN CELL VOLUME 97.3 fl (80.0-94.0); MEAN CORPUSCULAR HGB 33.2 pg (27.0-31.0); MEAN CORPUSCULAR HGB CONC 34.1 g/dl (33.0-37.0); MEAN PLATELET VOLUME 8.5 fl (9.6-12.3); MONO # 0.5 10*3/uL (0.1-1.0); MONO % 6.6 % (3.0-9.0); NEUT # 5.3 10*3/uL (2.3-7.9); NEUT % 72.5 % (47.0-73.0); PLATELET COUNT AUTOMATED 246 10*3/uL (130-400); RED BLOOD COUNT 4.13 10*6/uL (4.50-5.90); RED CELL DISTRI WIDTH 12.6 % (0-14.5); WHITE BLOOD COUNT 7.4 10*3/uL (4.8-10.8)
[2018-04-02 14:15] LABS: ACT PARTIAL THROMBO TIME 21.9 SECONDS (20.8-31.5)
[2018-04-02 14:17] LABS: BILIRUBIN NEGATIVE (NEGATIVE); BLOOD NEGATIVE (NEGATIVE); CLARITY CLEAR (CLEAR); COLOR YELLOW (YELLOW); GLUCOSE NEGATIVE (NEGATIVE); KETONE NEGATIVE (NEGATIVE); LEUKO ESTERASE 1+ (NEGATIVE); NITRITE NEGATIVE (NEGATIVE); PH 8.5 (5.0-9.0); UROBILINOGEN 0.2 E.U./dl (0.2-1.0)
[2018-04-02 14:19] LABS: URINE AMPHETAMINES < 1000 (1000ng/ml); URINE BARBITURATES < 200 (200ng/ml); URINE BENZODIAZEPINES < 200 (200ng/ml); URINE CANNABINOIDS (THC) < 50 (50ng/ml); URINE COCAINE < 300 (300ng/ml); URINE METHADONE < 300 (300ng/ml); URINE OPIATES < 300 (300ng/ml)
[2018-04-02 14:20] LABS: ALBUMIN 4.3 gm/dl (3.1-4.5); ALKALINE PHOSPHATASE 70 U/L (45-117); BUN 8 mg/dl (7-24); CHLORIDE 101 mmol/L (98-107); CREATININE 1.22 mg/dL (0.70-1.30); POTASSIUM 4.1 mmol/L (3.5-5.1); SGOT/AST 28 IU/L (3-35); SGPT/ALT 52 U/L (12-78); SODIUM 136 mmol/L (136-145); TOTAL PROTEIN 7.7 gm/dL (6.4-8.2)
[2018-04-02 14:28] LABS: ACETAMINOPHEN (TYLENOL) < 5.0 ug/ml (10-30); ETHYL ALCOHOL < 3.0 mg/dl (<3)
[2018-04-02 14:28] LABS: URINE PHENCYCLIDINE < 25 (25ng/ml)
[2018-04-02 14:34] LABS: BACTERIA TRACE
[2018-04-02 14:36] LABS: RBC 0-2 rbc/hpf (0-2)
[2018-04-02 14:37] LABS: EPITHELIAL CELLS 0-2
[2018-04-02 15:12] VITALS: BP 150/84
[2018-04-02 16:14] VITALS: BP 148/70
[2018-04-02 19:32] VITALS: BP 136/88
[2018-04-02 22:34] VITALS: BP 126/74
[2018-04-02 22:45] VITALS: BP 142/72
[2018-04-02] MEDS ORDERED: NEURONTIN400 MG PO (23:10)
[2018-04-03] VITALS: BP 128/77
[2018-04-03 04:00] VITALS: BP 116/74
[2018-04-03 08:00] VITALS: BP 128/70
== END 2018-04-03 10:59 | disposition home or self-care (01) | DRG 918 ==
LOC: ED 13:39 → ICCU 22:22 → EDHOLD 22:22 → ICCU 22:35
PROVIDERS: Emergency Medicine
DX: T43.292A Poisoning by other antidepressants, intentional self-harm, initial encounter (principal); F25.9 Schizoaffective disorder, unspecified; F90.9 Attention-deficit hyperactivity disorder, unspecified type; F31.9 Bipolar disorder, unspecified; F17.210 Nicotine dependence, cigarettes, uncomplicated; K21.9 Gastro-esophageal reflux disease without esophagitis; E05.90 Thyrotoxicosis, unspecified without thyrotoxic crisis or storm; E66.9 Obesity, unspecified; Z68.34 Body mass index [BMI] 34.0-34.9, adult; Y92.89 Other specified places as the place of occurrence of the external cause; Z91.5 Personal history of self-harm; Z81.8 Family history of other mental and behavioral disorders; Z80.3 Family history of malignant neoplasm of breast; Z86.73 Personal history of transient ischemic attack (TIA), and cerebral infarction without residual deficits

== ENCOUNTER 2018-04-26 06:36 | Emergency (ER) | payer OTHER ==
[~2018-04-26] VITALS: Ht 187.9 cm; Wt 126.6 kg
[2018-04-26] MEDS ORDERED: SKLICE117 GM T (07:21)
== END 2018-04-26 07:34 | disposition home or self-care (01) ==
LOC: ED 06:36
DX: R23.4 Changes in skin texture (principal); L53.8 Other specified erythematous conditions; K21.9 Gastro-esophageal reflux disease without esophagitis; E66.9 Obesity, unspecified; F17.200 Nicotine dependence, unspecified, uncomplicated; Z68.39 Body mass index [BMI] 39.0-39.9, adult; Z79.899 Other long term (current) drug therapy

== ENCOUNTER 2018-04-27 09:50 | Emergency (ER) | payer OTHER ==
[~2018-04-27] VITALS: Wt 90.7 kg
[~2018-04-27 09:50] MED LIST changes: +SKLICE117 GM T
== END 2018-04-27 10:36 | disposition home or self-care (01) ==
LOC: ED 09:50
DX: R21 Rash and other nonspecific skin eruption (principal); R03.0 Elevated blood-pressure reading, without diagnosis of hypertension; K21.9 Gastro-esophageal reflux disease without esophagitis; E05.90 Thyrotoxicosis, unspecified without thyrotoxic crisis or storm; E66.9 Obesity, unspecified; F17.200 Nicotine dependence, unspecified, uncomplicated; Z68.30 Body mass index [BMI] 30.0-30.9, adult; Z79.899 Other long term (current) drug therapy

== ENCOUNTER 2018-06-10 11:09 | Emergency (ER) | payer OTHER ==
[~2018-06-10] VITALS: Ht 187.9 cm; Wt 127.9 kg
[~2018-06-10 11:09] MED LIST changes: +VOLTAREN100 GM T; +VOLTAREN50 M1 PO
== END 2018-06-10 13:10 | disposition home or self-care (01) ==
LOC: ED 11:09
DX: M25.561 Pain in right knee (principal); R03.0 Elevated blood-pressure reading, without diagnosis of hypertension; K21.9 Gastro-esophageal reflux disease without esophagitis; E05.90 Thyrotoxicosis, unspecified without thyrotoxic crisis or storm; E66.9 Obesity, unspecified; F17.200 Nicotine dependence, unspecified, uncomplicated; Z79.899 Other long term (current) drug therapy

== ENCOUNTER 2018-06-15 09:44 | Emergency (ER) | payer OTHER ==
[~2018-06-15] VITALS: Ht 187.9 cm; Wt 123.8 kg
== END 2018-06-15 10:09 | disposition home or self-care (01) ==
LOC: ED 09:44
DX: M25.561 Pain in right knee (principal); R03.0 Elevated blood-pressure reading, without diagnosis of hypertension; K21.9 Gastro-esophageal reflux disease without esophagitis; E05.90 Thyrotoxicosis, unspecified without thyrotoxic crisis or storm; E66.9 Obesity, unspecified; F17.200 Nicotine dependence, unspecified, uncomplicated; Z68.30 Body mass index [BMI] 30.0-30.9, adult; Z79.899 Other long term (current) drug therapy; X50.1XXA Overexertion from prolonged static or awkward postures, initial encounter; Y93.89 Activity, other specified; Y92.89 Other specified places as the place of occurrence of the external cause; Y99.8 Other external cause status

== ENCOUNTER 2018-11-26 03:09 | Inpatient (IN) | payer OTHER ==
[~2018-11-26] VITALS: Ht 188 cm; Wt 126.6 kg
--- NOTE | ~2018-11-26 | EKG ---
[place], [place] ELECTROCARDIOGRAM REPORT NAME: YUN VANN UNIT #: [id number] ROOM: [facility] DOCTOR: ANGELA DRAFT REPORT BIRTHDATE: [birth year] [facility] Test Date: 2018-11-26 Test Time: 03:39:31 Pat Name: YUN VANN Department: Room: [facility] Gender: M Nail Specialist: AMANDO : 1980 Requested By: SHRAVAN BIGGS Order Number: [id number] Reading MD: Hemant Gimenez MD Measurements Intervals [place] Rate: 96 P: 54 MD: 154 QRS: -15 QRSD: 121 T: 29 QT: 357 QTc: 452 Interpretive Statements Sinus rhythm Probable left atrial enlargement Right bundle branch block ST elev, probable normal early repol pattern Compared to ECG 04/02/2018 16:01:46 Right bundle-branch block now present ST (T wave) deviation now present Sinus tachycardia no longer present Intraventricular conduction delay no longer present Myocardial infarct finding no longer present Electronically Signed On 11-27-2018 10:58:41 PDT by Hemant Gimenez MD CM:EKGRPT:ELECTROCARDIOGRAM REPORT 0339 1058 SHRAVAN CASTRO DRAFT REPORT SHRAVAN BIGGS DO
[~2018-11-26 03:09] MED LIST changes: +INVEGA SUSTENN156 MG IM; -INVEGA9 MG PO
[2018-11-26 03:11] VITALS: BP 148/90
[2018-11-26] MEDS ORDERED: FOCALIN XR10 MG PO (03:21)
[2018-11-26 03:43] LABS: BASO % 0.4 % (0.0-1.0); EOS # 0.2 10*3/uL (0.0-0.4); EOS % 2.7 % (1.0-4.0); HEMATOCRIT 37.8 % (42.0-52.0); HEMOGLOBIN 12.7 g/dl (14.0-18.0); LYMPH # 1.9 10*3/uL (1.3-4.4); LYMPH % 22.6 % (27.0-41.0); MEAN CELL VOLUME 97.4 fl (80.0-94.0); MEAN CORPUSCULAR HGB 32.7 pg (27.0-31.0); MEAN CORPUSCULAR HGB CONC 33.6 g/dl (33.0-37.0); MEAN PLATELET VOLUME 9.1 fl (9.6-12.3); MONO # 0.8 10*3/uL (0.1-1.0); MONO % 9.2 % (3.0-9.0); NEUT # 5.4 10*3/uL (2.3-7.9); NEUT % 64.7 % (47.0-73.0); PLATELET COUNT AUTOMATED 231 10*3/uL (130-400); RED BLOOD COUNT 3.88 10*6/uL (4.50-5.90); WHITE BLOOD COUNT 8.3 10*3/uL (4.8-10.8)
[2018-11-26 03:53] LABS: INTERNATIONAL NORM RATIO 1.1 (2.0-3.5)
[2018-11-26 03:59] LABS: ALBUMIN 4.2 gm/dl (3.1-4.5); ALKALINE PHOSPHATASE 72 U/L (45-117); BUN 9 mg/dl (7-24); CHLORIDE 104 mmol/L (98-107); SGOT/AST 76 IU/L (3-35); SGPT/ALT 82 U/L (12-78); SODIUM 138 mmol/L (136-145); TOTAL PROTEIN 7.5 gm/dL (6.4-8.2)
[2018-11-26 04:06] LABS: TROPONIN I < 0.015 ng/ml (<0.045)
[2018-11-26 06:51] VITALS: BP 126/73
[2018-11-26 07:46] VITALS: BP 130/80
[2018-11-26 08:49] VITALS: BP 120/86
[2018-11-26 09:30] VITALS: BP 134/90
== END 2018-11-26 10:26 | disposition left against medical advice (07) | DRG 299 ==
LOC: ED 03:09 → EDHOLD 08:49 → ICCU 09:38
PROVIDERS: Student in an Organized Health Care Education/Training Program; ADMIT Internal Medicine
DX: I82.412 Acute embolism and thrombosis of left femoral vein (principal); I26.99 Other pulmonary embolism without acute cor pulmonale; I82.432 Acute embolism and thrombosis of left popliteal vein; I82.492 Acute embolism and thrombosis of other specified deep vein of left lower extremity; Z53.21 Procedure and treatment not carried out due to patient leaving prior to being seen by health care provider; F90.9 Attention-deficit hyperactivity disorder, unspecified type; F20.9 Schizophrenia, unspecified; F31.9 Bipolar disorder, unspecified; K21.9 Gastro-esophageal reflux disease without esophagitis; E05.90 Thyrotoxicosis, unspecified without thyrotoxic crisis or storm; E66.9 Obesity, unspecified; Z91.5 Personal history of self-harm; Z68.35 Body mass index [BMI] 35.0-35.9, adult

== ENCOUNTER → 2019-12-26 | Outpatient (CLI) | payer OTHER ==
[~2019-12-26] MED LIST changes: +FOCALIN XR10 MG PO
== END | disposition home or self-care (01) ==
LOC: CARD 09:45
DX: F90.9 Attention-deficit hyperactivity disorder, unspecified type (principal)

== ENCOUNTER → 2020-01-14 | Outpatient (CLI) | payer OTHER ==
[2020-01-14 08:38] LABS: FREE T4 0.87 ng/dl (0.76-1.46)
[2020-01-14 08:43] LABS: THYROID STIM HORMONE (HS) 2.47 uIU/ml (0.358-4.75)
[2020-01-14 09:39] LABS: VITAMIN D, 25-HYDROXY 49.6 ng/mL (30-100)
== END | disposition home or self-care (01) ==
LOC: LAB 07:53
PROVIDERS: Internal Medicine
DX: E03.9 Hypothyroidism, unspecified (principal); E55.9 Vitamin D deficiency, unspecified; E29.1 Testicular hypofunction; N40.0 Benign prostatic hyperplasia without lower urinary tract symptoms

== ENCOUNTER → 2020-04-23 | Outpatient (CLI) | payer OTHER ==
[2020-04-23 09:01] LABS: HEMATOCRIT 45.5 % (42.0-52.0); MEAN CELL VOLUME 98.3 fl (80.0-94.0); MEAN CORPUSCULAR HGB 34.3 pg (27.0-31.0); MEAN CORPUSCULAR HGB CONC 34.9 g/dl (33.0-37.0); MEAN PLATELET VOLUME 9.1 fl (9.6-12.3); RED BLOOD COUNT 4.63 10*6/uL (4.50-5.90); RED CELL DISTRI WIDTH 13.6 % (0-14.5)
[2020-04-23 09:34] LABS: ALKALINE PHOSPHATASE 80 U/L (45-117); BUN 14 mg/dl (7-24); CHLORIDE 107 mmol/L (98-107); CHOLESTEROL 175 mg/dL (<200); CREATININE 1.22 mg/dL (0.70-1.30); HDL CHOLESTEROL 65 mg/dl (40-60); LDL CHOLESTEROL 89 mg/dL (9-159); POTASSIUM 3.8 mmol/L (3.5-5.1); SGOT/AST 41 IU/L (3-35); SGPT/ALT 84 U/L (12-78); SODIUM 141 mmol/L (136-145); TOTAL PROTEIN 8.1 gm/dL (6.4-8.2); TRIGLYCERIDES 103 mg/dl (<150); VLDL CHOLESTEROL 21 mg/dL (6-40)
[2020-04-23 09:38] LABS: FREE T4 0.89 ng/dl (0.76-1.46); THYROID STIM HORMONE (HS) 0.418 uIU/ml (0.358-4.75)
== END | disposition home or self-care (01) ==
LOC: LAB 08:40
PROVIDERS: Family Medicine; ATTEND Internal Medicine
DX: E03.9 Hypothyroidism, unspecified (principal); K21.9 Gastro-esophageal reflux disease without esophagitis; E74.09 Other glycogen storage disease; E55.9 Vitamin D deficiency, unspecified; F41.1 Generalized anxiety disorder; E66.9 Obesity, unspecified

== ENCOUNTER → 2020-10-05 | Outpatient (CLI) | payer OTHER ==
[2020-10-05 10:50] LABS: HEMATOCRIT 44.8 % (42.0-52.0); MEAN CORPUSCULAR HGB 33.7 pg (27.0-31.0); MEAN CORPUSCULAR HGB CONC 34.4 g/dl (33.0-37.0); MEAN PLATELET VOLUME 9.2 fl (9.6-12.3); RED BLOOD COUNT 4.57 10*6/uL (4.50-5.90); RED CELL DISTRI WIDTH 12.7 % (0-14.5); WHITE BLOOD COUNT 6.8 10*3/uL (4.8-10.8)
[2020-10-05 11:15] LABS: ALBUMIN 4.3 gm/dl (3.1-4.5); BUN 8 mg/dl (7-24); CHLORIDE 105 mmol/L (98-107); CREATININE 0.92 mg/dL (0.70-1.30); POTASSIUM 3.7 mmol/L (3.5-5.1); SGOT/AST 53 IU/L (3-35); SGPT/ALT 73 U/L (12-78); SODIUM 137 mmol/L (136-145); TOTAL PROTEIN 7.9 gm/dL (6.4-8.2)
[2020-10-05 11:23] LABS: ALKALINE PHOSPHATASE 82 U/L (45-117); FREE T4 0.83 ng/dl (0.76-1.46); THYROID STIM HORMONE (HS) 0.997 uIU/ml (0.358-4.75)
== END | disposition home or self-care (01) ==
LOC: LAB 10:02
PROVIDERS: ATTEND Family Medicine
DX: K21.9 Gastro-esophageal reflux disease without esophagitis (principal); E03.9 Hypothyroidism, unspecified; R63.5 Abnormal weight gain; G62.9 Polyneuropathy, unspecified

== ENCOUNTER → 2020-11-30 | Outpatient (CLI) | payer OTHER ==
[2020-11-30 09:11] LABS: ALBUMIN 4.4 gm/dl (3.1-4.5); BILIRUBIN, DIRECT 0.2 mg/dL (0.0-0.2)
[2020-11-30 09:21] LABS: FREE T4 0.91 ng/dl (0.76-1.46); THYROID STIM HORMONE (HS) 1.19 uIU/ml (0.358-4.75); TOTAL PROTEIN 7.8 gm/dL (6.4-8.2)
[2020-11-30 09:27] LABS: VITAMIN D, 25-HYDROXY 30.9 ng/mL (30-100)
== END | disposition home or self-care (01) ==
LOC: LAB 07:55
PROVIDERS: ATTEND Internal Medicine
DX: E29.1 Testicular hypofunction (principal); N40.0 Benign prostatic hyperplasia without lower urinary tract symptoms; E03.9 Hypothyroidism, unspecified; E55.9 Vitamin D deficiency, unspecified; R74.8 Abnormal levels of other serum enzymes

== ENCOUNTER 2021-02-23 23:23 | Emergency (ER) | payer OTHER ==
[~2021-02-23] VITALS: Ht 185.4 cm; Wt 112.0 kg
== END 2021-02-24 02:46 | disposition left against medical advice (07) ==
LOC: ED 23:23
DX: R22.42 Localized swelling, mass and lump, left lower limb (principal); Z53.21 Procedure and treatment not carried out due to patient leaving prior to being seen by health care provider

== ENCOUNTER 2022-08-01 02:18 | Emergency (ER) | payer OTHER ==
[~2022-08-01] VITALS: Ht 182.8 cm; Wt 90.7 kg
[2022-08-01 03:21] LABS: BASO # 0.1 10*3/uL (0.0-0.1); BASO % 0.7 % (0.0-1.0); EOS # 0.1 10*3/uL (0.0-0.4); EOS % 1.1 % (1.0-4.0); HEMATOCRIT 41.1 % (42.0-52.0); LYMPH # 1.7 10*3/uL (1.3-4.4); LYMPH % 23.3 % (27.0-41.0); MEAN CELL VOLUME 94.5 fl (80.0-94.0); MEAN CORPUSCULAR HGB 33.1 pg (27.0-31.0); MEAN PLATELET VOLUME 8.8 fl (9.6-12.3); MONO # 0.8 10*3/uL (0.1-1.0); MONO % 10.4 % (3.0-9.0); NEUT # 4.6 10*3/uL (2.3-7.9); NEUT % 64.2 % (47.0-73.0); PLATELET COUNT AUTOMATED 237 10*3/uL (130-400); RED BLOOD COUNT 4.35 10*6/uL (4.50-5.90); RED CELL DISTRI WIDTH 12.2 % (0-14.5); WHITE BLOOD COUNT 7.2 10*3/uL (4.8-10.8)
[2022-08-01 03:36] LABS: ALKALINE PHOSPHATASE 67 U/L (46-116); BUN 10 mg/dl (9-23); CHLORIDE 104 mmol/L (98-107); POTASSIUM 3.7 mmol/L (3.4-5.1); SGPT/ALT 49 U/L (10-49); TOTAL PROTEIN 7.4 gm/dL (6.0-8.0)
== END 2022-08-01 05:57 | disposition home or self-care (01) ==
LOC: ED 02:18
PROVIDERS: Emergency Medicine
DX: R00.2 Palpitations (principal); E66.9 Obesity, unspecified; K21.9 Gastro-esophageal reflux disease without esophagitis; F17.210 Nicotine dependence, cigarettes, uncomplicated; Z79.899 Other long term (current) drug therapy

== ENCOUNTER 2022-10-28 18:49 | Emergency (ER) | payer OTHER | END 2022-10-28 20:09 | disposition home or self-care (01) | LOC: ED 18:49 | DX: R00.0 Tachycardia, unspecified (principal); Z98.890 Other specified postprocedural states; F17.200 Nicotine dependence, unspecified, uncomplicated ==

== ENCOUNTER 2022-12-12 09:20 | Emergency (ER) | payer OTHER ==
[~2022-12-12] VITALS: Ht 187.9 cm; Wt 110.2 kg
[2022-12-12] MEDS ORDERED: CLONIDINE HCL0.1 MG PO (09:47)
[2022-12-12] MEDS ORDERED: PROTONIX TR40 M1 PO (09:48)
[2022-12-12] MEDS ORDERED: CYTOMEL5 MCG PO (09:48)
[2022-12-12] MEDS ORDERED: STRATTERA40 M1 PO (09:50)
[2022-12-12] MEDS ORDERED: THORAZINE50 MG PO (09:51)
[2022-12-12] MEDS ORDERED: WELLBUTRIN XL150 MG PO (09:52)
[2022-12-12] MEDS ORDERED: Synthroid,Levo50 MCG PO (09:52)
[2022-12-12] MEDS ORDERED: ELIQUIS5 M1 PO (09:52)
[2022-12-12] MEDS ORDERED: MINIPRESS2 M1 PO (09:53)
[2022-12-12] MEDS ORDERED: TOPAMAX100 M1 PO (09:54)
[2022-12-12] MEDS ORDERED: NEURONTIN800 MG PO (09:54)
[2022-12-12] MEDS ORDERED: FOCALIN XR20 MG PO (09:55)
[2022-12-12] MEDS ORDERED: INVEGA SUSTENN234 MG IM (09:56)
== END 2022-12-12 09:58 | disposition home or self-care (01) ==
LOC: ED 09:20
DX: F41.9 Anxiety disorder, unspecified (principal); F32.A Depression, unspecified; F90.9 Attention-deficit hyperactivity disorder, unspecified type; Z86.718 Personal history of other venous thrombosis and embolism; Z98.890 Other specified postprocedural states; F17.200 Nicotine dependence, unspecified, uncomplicated

== ENCOUNTER 2023-04-16 17:58 | Emergency (ER) | payer OTHER ==
[~2023-04-16] VITALS: Ht 187.9 cm; Wt 106.6 kg
[~2023-04-16 17:58] MED LIST changes: +CLONIDINE HCL0.1 MG PO; +CYTOMEL5 MCG PO; +ELIQUIS5 M1 PO; +INVEGA SUSTENN234 MG IM; +MINIPRESS2 M1 PO; +NEURONTIN800 MG PO; +PROTONIX TR40 M1 PO; +STRATTERA40 M1 PO; +Synthroid,Levo50 MCG PO; +THORAZINE50 MG PO; +TOPAMAX100 M1 PO; +WELLBUTRIN XL150 MG PO
[2023-04-16 18:32] LABS: BASO % 0.6 % (0.0-1.0); EOS # 0.1 10*3/uL (0.0-0.4); EOS % 1.4 % (1.0-4.0); HEMATOCRIT 41.6 % (42.0-52.0); LYMPH # 1.8 10*3/uL (1.3-4.4); LYMPH % 25.7 % (27.0-41.0); MEAN CELL VOLUME 94.5 fl (80.0-94.0); MEAN CORPUSCULAR HGB 33.6 pg (27.0-31.0); MEAN CORPUSCULAR HGB CONC 35.6 g/dl (33.0-37.0); MEAN PLATELET VOLUME 8.6 fl (9.6-12.3); MONO # 0.7 10*3/uL (0.1-1.0); MONO % 9.1 % (3.0-9.0); NEUT # 4.5 10*3/uL (2.3-7.9); NEUT % 62.9 % (47.0-73.0); PLATELET COUNT AUTOMATED 282 10*3/uL (130-400); RED CELL DISTRI WIDTH 12.6 % (0-14.5); WHITE BLOOD COUNT 7.2 10*3/uL (4.8-10.8)
[2023-04-16 19:00] LABS: ALKALINE PHOSPHATASE 75 U/L (46-116); BUN 7 mg/dl (9-23); CHLORIDE 107 mmol/L (98-107); ETHYL ALCOHOL < 3.0 mg/dl (<3); POTASSIUM 3.6 mmol/L (3.4-5.1); SGPT/ALT 26 U/L (5-49); TOTAL PROTEIN 7.3 gm/dL (6.0-8.0)
== END 2023-04-16 19:15 | disposition home or self-care (01) ==
LOC: ED 17:58
PROVIDERS: Family Medicine
DX: R00.0 Tachycardia, unspecified (principal); T43.635A Adverse effect of methylphenidate, initial encounter; F32.A Depression, unspecified; F90.9 Attention-deficit hyperactivity disorder, unspecified type; Z86.718 Personal history of other venous thrombosis and embolism; Z98.890 Other specified postprocedural states; F17.290 Nicotine dependence, other tobacco product, uncomplicated; Y92.89 Other specified places as the place of occurrence of the external cause

== ENCOUNTER 2023-04-29 13:45 | Emergency (ER) | payer OTHER | END 2023-04-29 14:27 | disposition left against medical advice (07) | LOC: ED 13:45 | DX: R00.0 Tachycardia, unspecified (principal); Z53.21 Procedure and treatment not carried out due to patient leaving prior to being seen by health care provider ==

== ENCOUNTER 2023-07-21 08:36 | Emergency (ER) | payer OTHER ==
[~2023-07-21] VITALS: Ht 187.9 cm; Wt 109.8 kg
[2023-07-21 09:22] LABS: BASO % 0.4 % (0.0-1.0); EOS # 0.2 10*3/uL (0.0-0.4); EOS % 2.5 % (1.0-4.0); HEMATOCRIT 41.7 % (42.0-52.0); LYMPH # 1.9 10*3/uL (1.3-4.4); LYMPH % 25.3 % (27.0-41.0); MEAN CELL VOLUME 96.8 fl (80.0-94.0); MEAN CORPUSCULAR HGB 32.3 pg (27.0-31.0); MEAN CORPUSCULAR HGB CONC 33.3 g/dl (33.0-37.0); MEAN PLATELET VOLUME 8.9 fl (9.6-12.3); MONO # 0.6 10*3/uL (0.1-1.0); MONO % 8.4 % (3.0-9.0); NEUT # 4.6 10*3/uL (2.3-7.9); PLATELET COUNT AUTOMATED 261 10*3/uL (130-400); RED BLOOD COUNT 4.31 10*6/uL (4.50-5.90); RED CELL DISTRI WIDTH 12.6 % (0-14.5); WHITE BLOOD COUNT 7.3 10*3/uL (4.8-10.8)
[2023-07-21 09:43] LABS: ALKALINE PHOSPHATASE 66 U/L (46-116); BUN 7 mg/dl (9-23); CHLORIDE 109 mmol/L (98-107); POTASSIUM 3.7 mmol/L (3.4-5.1); SGPT/ALT 37 U/L (5-49); TOTAL PROTEIN 6.8 gm/dL (6.0-8.0)
[2023-07-21 09:48] LABS: ACT PARTIAL THROMBO TIME 26.8 SECONDS (20.0-32.1)
== END 2023-07-21 10:25 | disposition home or self-care (01) ==
LOC: ED 08:36
PROVIDERS: Emergency Medicine
DX: G56.31 Lesion of radial nerve, right upper limb (principal); F41.9 Anxiety disorder, unspecified; F31.9 Bipolar disorder, unspecified; F20.9 Schizophrenia, unspecified; F17.200 Nicotine dependence, unspecified, uncomplicated; Z88.8 Allergy status to other drugs, medicaments and biological substances; Z79.899 Other long term (current) drug therapy; Z98.84 Bariatric surgery status; Z86.718 Personal history of other venous thrombosis and embolism; Z86.711 Personal history of pulmonary embolism

== ENCOUNTER 2023-08-27 14:41 | Emergency (ER) | payer OTHER ==
[~2023-08-27] VITALS: Ht 187.9 cm; Wt 110.2 kg
[2023-08-27] MEDS ORDERED: SODIUM CHLORIDE 0.9% 1,000 ML IV ONE (15:00)
[2023-08-27 15:13] LABS: BASO % 0.7 % (0.0-1.0); EOS # 0.1 10*3/uL (0.0-0.4); EOS % 0.9 % (1.0-4.0); HEMATOCRIT 40.3 % (42.0-52.0); LYMPH # 1.4 10*3/uL (1.3-4.4); LYMPH % 24.6 % (27.0-41.0); MEAN CELL VOLUME 94.8 fl (80.0-94.0); MEAN CORPUSCULAR HGB 32.2 pg (27.0-31.0); MEAN PLATELET VOLUME 8.4 fl (9.6-12.3); MONO # 0.4 10*3/uL (0.1-1.0); MONO % 6.5 % (3.0-9.0); NEUT # 3.8 10*3/uL (2.3-7.9); NEUT % 66.8 % (47.0-73.0); PLATELET COUNT AUTOMATED 248 10*3/uL (130-400); RED BLOOD COUNT 4.25 10*6/uL (4.50-5.90); RED CELL DISTRI WIDTH 13.2 % (0-14.5); WHITE BLOOD COUNT 5.7 10*3/uL (4.8-10.8)
[2023-08-27 15:24] LABS: ACT PARTIAL THROMBO TIME 27.1 SECONDS (20.0-32.1)
[2023-08-27 15:29] LABS: ALKALINE PHOSPHATASE 63 U/L (46-116); BUN 7 mg/dl (9-23); CHLORIDE 109 mmol/L (98-107); POTASSIUM 3.6 mmol/L (3.4-5.1); SGPT/ALT 29 U/L (5-49); TOTAL PROTEIN 7.5 gm/dL (6.0-8.0)
== END 2023-08-27 17:08 | disposition left against medical advice (07) ==
LOC: ED 14:41
PROVIDERS: Nurse Practitioner Family
DX: R00.2 Palpitations (principal); Z53.29 Procedure and treatment not carried out because of patient's decision for other reasons; F41.9 Anxiety disorder, unspecified; F90.9 Attention-deficit hyperactivity disorder, unspecified type; F31.9 Bipolar disorder, unspecified; K21.9 Gastro-esophageal reflux disease without esophagitis; E44.0 Moderate protein-calorie malnutrition; F20.9 Schizophrenia, unspecified; E66.9 Obesity, unspecified; Z98.84 Bariatric surgery status; Z88.8 Allergy status to other drugs, medicaments and biological substances; Z79.899 Other long term (current) drug therapy; Z86.718 Personal history of other venous thrombosis and embolism; Z86.711 Personal history of pulmonary embolism; Z68.30 Body mass index [BMI] 30.0-30.9, adult

== ENCOUNTER 2024-06-23 14:02 | Emergency (ER) | payer OTHER ==
[~2024-06-23] VITALS: Ht 187.9 cm; Wt 106.1 kg
[2024-06-23 15:20] LABS: BASO # 0.1 10*3/uL (0.0-0.1); BASO % 0.8 % (0.0-1.0); EOS # 0.1 10*3/uL (0.0-0.4); EOS % 0.7 % (1.0-4.0); HEMATOCRIT 41.4 % (42.0-52.0); MEAN CORPUSCULAR HGB CONC 34.1 g/dl (33.0-37.0); MEAN PLATELET VOLUME 8.5 fl (9.6-12.3); MONO # 0.4 10*3/uL (0.1-1.0); MONO % 5.8 % (3.0-9.0); NEUT % 68.2 % (47.0-73.0); PLATELET COUNT AUTOMATED 237 10*3/uL (130-400); RED BLOOD COUNT 4.27 10*6/uL (4.50-5.90); RED CELL DISTRI WIDTH 13.1 % (0-14.5); WHITE BLOOD COUNT 7.3 10*3/uL (4.8-10.8)
[2024-06-23 15:52] LABS: CHLORIDE 100 mmol/L (98-107); ETHYL ALCOHOL 57.3 mg/dl (<3); POTASSIUM 3.6 mmol/L (3.4-5.1)
[2024-06-23 15:53] LABS: BUN < 5 mg/dl (9-23)
[2024-06-23] MEDS ORDERED: IOHEXOL 350 MG/ML 100 ML VIAL IV ONE (16:30)
[2024-06-23] MEDS ORDERED: SODIUM CHLORIDE 0.9% 100 ML BAG IV ONE (16:30)
== END 2024-06-23 18:50 | disposition home or self-care (01) ==
LOC: ED 14:02
PROVIDERS: Emergency Medicine
DX: R00.2 Palpitations (principal); F41.9 Anxiety disorder, unspecified; F32.A Depression, unspecified; F90.9 Attention-deficit hyperactivity disorder, unspecified type; F17.200 Nicotine dependence, unspecified, uncomplicated; Z88.8 Allergy status to other drugs, medicaments and biological substances; Z98.890 Other specified postprocedural states

== ENCOUNTER 2024-07-13 10:10 | Emergency (ER) | payer OTHER ==
[~2024-07-13] VITALS: Ht 187.9 cm; Wt 104.3 kg
[2024-07-13 10:55] LABS: BILIRUBIN Negative (Negative); BLOOD Negative (Negative); CLARITY Clear (Clear); COLOR Yellow (Yellow); GLUCOSE Negative (Negative); KETONE Negative (Negative); LEUKO ESTERASE Negative (Negative); NITRITE Negative (Negative); PH 5.5 (4.5-8.0); SPECIFIC GRAVITY <= 1.005 (1.001-1.030); UROBILINOGEN 0.2 E.U./dl (0.0-1.0)
[2024-07-13 11:02] LABS: URINE AMPHETAMINES Negative (1000ng/ml); URINE BARBITURATES Negative (200ng/ml); URINE BENZODIAZEPINES Negative (200ng/ml); URINE CANNABINOIDS (THC) Negative (50ng/ml); URINE COCAINE Negative (300ng/ml); URINE METHADONE Negative (300ng/ml); URINE OPIATES Negative (300ng/ml); URINE PHENCYCLIDINE Negative (25ng/ml)
[2024-07-13 11:36] LABS: BACTERIA TRACE; EPITHELIAL CELLS 0-2; WBC 0-2 wbc/hpf (0-5)
== END 2024-07-13 16:14 | disposition home or self-care (01) ==
LOC: ED 10:10
PROVIDERS: Emergency Medicine
DX: F32.A Depression, unspecified (principal); F90.9 Attention-deficit hyperactivity disorder, unspecified type; F17.200 Nicotine dependence, unspecified, uncomplicated; Z88.8 Allergy status to other drugs, medicaments and biological substances; Z98.890 Other specified postprocedural states; Z79.899 Other long term (current) drug therapy